=== PATIENT | female | born 1965 | race Hispanic/Latino ===

== ENCOUNTER 2018-04-02 10:53 | Emergency (ER) | payer MEDICARE ==
[~2018-04-02 10:53] MED LIST: AMLO10TA6 PO; CLON1PAT13 TD; FURO80TA3 PO; ISOS30TA6 PO; METO-391 PO; OXYB5TAB10 PO; PANT40TA25 PO; SIMV20TA6 PO; TERB250T51 PO; VALS320T16 PO
== END 2018-04-02 11:33 | disposition home or self-care (01) ==
LOC: EDH 10:53
DX: M19.90 Unspecified osteoarthritis, unspecified site (principal); M25.561 Pain in right knee; I10 Essential (primary) hypertension; Z90.710 Acquired absence of both cervix and uterus; Z87.891 Personal history of nicotine dependence
CPT/HCPCS: 99281